=== PATIENT | female | born 2005 | race Caucasian/White ===

== ENCOUNTER 2023-08-23 17:39 | Emergency (ER) | payer OTHER, SELFPAY ==
[2023-08-23 17:53] VITALS: BP 118/83; PULSE 81; RESP 16; TEMP 37.6; O2SAT 100
--- NOTE | 2023-08-23 18:04 | ED.GENADULT ---
HPI - General Adult General Chief complaint: Unspecified Stated complaint: Right Side Face Pain Time Seen by Provider: 08/23/23 17:58 Mode of arrival: ambulatory Limitations: no limitations History of Present Illness HPI narrative: 18-year-old female presents with concern for right jaw pain. She reports it hurts when she opens and closes her mouth for more than a week. She reports she has history of jaw popping and clicking. She reports she has taken Tylenol. She denies any facial or ear swelling, redness, warmth. Denies drainage from the ear MD complaint: Jaw pain Related Data Home Medications Medication Instructions Recorded Confirmed budesonide-formoterol HFA 80 inhalation 08/23/23 mcg-4.5 mcg/actuation aerosol inhaler (Symbicort) norethindrone acetate 1.5 tablet 08/23/23 mg-ethinyl estradiol 30 mcg tablet Allergies Allergy/AdvReac Type Severity Reaction Status Date / Time No Known Drug Allergies Allergy Mild Other Verified 08/23/23 17:49 Review of Systems Review of Systems: CONSTITUTIONAL: Denies malaise, chills, sweats, or fever. EYES: Denies visual changes ENT: Denies rhinorrhea, congestion, sinus pain, otalgia or sore throat. Reports right jaw pain CARDIOVASCULAR: Denies chest pain, palpitations RESPIRATORY: Denies cough or dyspnea. SKIN: Denies rash or itching. MUSCULOSKELETAL: Denies myalgia. NEUROLOGIC: Denies numbness, weakness, or headache. All systems reviewed & are unremarkable except as noted in HPI and below PMFSH Comments At time of signature, agree with nursing past medical, surgical, social and family history. There is no relevant family history pertinent to the presenting complaint Exam Narrative: GENERAL: Well-appearing, well-nourished, and in no acute distress. HEAD: Normocephalic, atraumatic. EYES: PERRLA, sclera clear ENT: Nares clear, turbinates pink, no rhinorrhea or epistaxis. Mucous membranes moist. TM pearly jay with sharp light reflex bilaterally; no tragal tenderness. Oropharynx without erythema or lesions. Tonsils not enlarged and without exudate. No missing teeth, broken teeth, caries, dental pain. Slight tenderness noted to the right TMJ, popping of the right TMJ noted with opening and closing of the mouth NECK: Supple. No lymphadenopathy. CHEST: No respiratory distress. Speaks in full sentences. HEART: Regular rate and rhythm. SKIN: Warm, dry, no visible rash. NEURO: Alert and oriented x3. PSYCH: Normal mood and affect Course Course Emergency Course: Patient is aware of diagnosis, understands and agrees to treatment plan. Anticipatory guidance given. Patient agrees to follow-up as directed and is aware of reasons to seek care at the emergency department. Portions of this record may have been created with voice recognition software Level of Care: Express Care Visit Vital Signs Vital signs: Vital Signs Temperature 99.6 F 08/23/23 17:53 Pulse Rate 81 08/23/23 17:53 Respiratory Rate 16 08/23/23 17:53 Blood Pressure 118/83 08/23/23 17:53 Pulse Oximetry 100 08/23/23 17:53 Oxygen Delivery Room Air 08/23/23 17:53 Temperature 99.6 F 08/23/23 17:53 Pulse Rate 81 08/23/23 17:53 Respiratory Rate 16 08/23/23 17:53 Blood Pressure 118/83 08/23/23 17:53 Pulse Oximetry 100 08/23/23 17:53 Oxygen Delivery Room Air 08/23/23 17:53 Reviewed. Medical Decision Making MDM Narrative Medical decision making narrative: Exam findings show no acute concerns or changes; patient is non-toxic appearing and is in no distress. Patient is appropriate for outpatient treatment and follow-up. Differential Diagnosis Differential Diagnosis: Ear pain, otitis media, mastoiditis, dental pain, dental infection, TMJ Vital Signs Vital Signs: Vital Signs Temperature 99.6 F 08/23/23 17:53 Pulse Rate 81 08/23/23 17:53 Respiratory Rate 16 08/23/23 17:53 Blood Pressure 118/83 08/23/23 17:53 Pulse Oximetry 100
== END 2023-08-23 18:08 | disposition home or self-care (01) ==
PROVIDERS: Emergency Provider Nurse Practitioner; PCP Pediatrics
DX: M26.629 Arthralgia of temporomandibular joint, unspecified side (principal); Z79.899 Other long term (current) drug therapy
CPT/HCPCS: 99211; G0463

== ENCOUNTER 2024-08-15 13:53 | Emergency (ER) | payer OTHER, SELFPAY ==
--- NOTE | ~2024-08-15 | XR_ITS ---
XR chest 2V Ordering provider: Yvonne Landa APRN History: 19 years Female with . cough . Comparison: None. FINDINGS: MEDIASTINUM: The cardiac silhouette is not enlarged. LUNGS: No infiltrates, effusions or pneumothorax. OTHER: No free air under the diaphragm. IMPRESSION: No acute cardiopulmonary pathology. Reviewed, dictated and finalized at location [facility] [employer]
[2024-08-15 14:03] VITALS: BP 111/70; PULSE 65; RESP 20; TEMP 37.2; O2SAT 100
--- NOTE | 2024-08-15 14:23 | ED.URI ---
HPI - URI/Sore Throat General Chief Complaint: Upper Respiratory Infection Stated Complaint: fever, congested in chest Time Seen by Provider: 08/15/24 14:23 Source: patient, RN notes reviewed and old records reviewed Mode of arrival: ambulatory Limitations: no limitations History of Present Illness HPI Narrative: Patient presents accompanied by her father. She is complaining of fever and a congested cough for the past 2 weeks. She reports T-max of 99.5?. She has been taking ibuprofen with good relief. She denies any wheezing or shortness of breath. She voices no other concerns or complaints at this time Related Data Home Medications Medication Instructions Recorded Confirmed budesonide-formoterol HFA 80 See Rx Instructions .Route .COMPLEX 08/23/23 08/15/24 mcg-4.5 mcg/actuation aerosol inhaler (Symbicort) norethindrone acetate 1.5 1 tablet PO DAILY 08/23/23 08/15/24 mg-ethinyl estradiol 30 mcg tablet Allergies Allergy/AdvReac Type Severity Reaction Status Date / Time No Known Drug Allergies Allergy Mild Other Verified 08/15/24 14:01 Review of Systems Review of Systems: All systems reviewed & are unremarkable except as noted in HPI and below Constitutional: Constitutional: Reports as per HPI, Reports no additional constitutional complaints and Reports fever(s) ENT: Reports system reviewed and no additional complaints, except as documented Cardiovascular: Cardiovascular: Reports as per HPI and Reports no additional cardiovascular complaints Respiratory: Respiratory: Reports no additional respiratory complaints, Reports chest congestion and Reports cough Gastrointestinal: Gastrointestinal: Reports no additional gastrointestinal complaints PMFSH Comments At the time of my signature, I reviewed and agree with the nursing past medical, surgical, social, and family history. There is no relevant family history pertinent to the patient complaint. Exam Const: General: cooperative, no acute distress, alert and awake Orientation/consciousness: oriented to person, oriented to place and oriented to time HENMT: Head: normal to inspection Mouth: Yes moist mucous membranes Resp: Effort & Inspection: normal respiratory effort and able to speak in complete sentences Auscultation: clear to auscultation bilaterally, no crackles, no rales, no rhonchi and no wheezes Cardio: Palpation: normal PMI Rate: regular rate Rhythm: regular rhythm Heart sounds: S1 normal heart sound present and S2 normal heart sound present Neuro: General: oriented to person, oriented to place and oriented to time Cranial nerves: Yes CN's II-XII intact bilaterally Psych: Appearance: grossly normal Thought process: Normal thought process present Insight: Good insight present (Psych) Judgement: Good judgement present (Psych) Course Course Level of Care: Express Care Visit Vital Signs Vital signs: Vital Signs Temperature 98.9 F 08/15/24 14:03 Pulse Rate 65 08/15/24 14:03 Respiratory Rate 20 08/15/24 14:03 Blood Pressure 111/70 08/15/24 14:03 Pulse Oximetry 100 08/15/24 14:03 Oxygen Delivery Room Air 08/15/24 14:03 Temperature 98.9 F 08/15/24 14:03 Pulse Rate 65 08/15/24 14:03 Respiratory Rate 20 08/15/24 14:03 Blood Pressure 111/70 08/15/24 14:03 Pulse Oximetry 100 08/15/24 14:03 Oxygen Delivery Room Air 08/15/24 14:03 Reviewed MDM - URI/Sore Throat MDM Narrative Medical decision making narrative: Reassuring physical exam, negative chest x-ray. Treat as bronchitis with steroid burst and bronchodilators. Follow up primary care provider. Emergency department for new or worse symptoms. Discharge instructions reviewed with patient, as well as provided in writing per nursing staff. The instructions also include specific and strict return/GO TO THE ER as well as f/u information. All questions have been answered, and the patient deny any further questions with discharge and discharge plan. Some parts of this dictation were generated by voice recognition software and may contain typographical and/or grammatical inaccuracies. Differential Diagnosis Differential diagnosis: Likely upper respiratory infection, otitis media, sinusitis and bronchitis Medical Records Attestation: I reviewed the patient's medical records. Imaging Data Attestation: I personally reviewed and interpreted this imaging study as follows: My impression: No acute findings Radiologist's impression: Patient: Jacquelin Nicholson : 2005 MR#: [id number] Age: 19 Acct:[id number] Loc: [facility] ADM Date: 08/15/24Attending Dr: Ordering Physician: Yvonne Landa FNP Date of Service: 08/15/24 Procedure(s): XR chest 2V Accession Number(s): [id number] cc: Yvonne Landa FNP; GiovanyFranchesca MD~ XR chest 2V Ordering provider: Yvonne Landa APRN History: 19 years Female with . cough . Comparison: None. FINDINGS: MEDIASTINUM: The cardiac silhouette is not enlarged. LUNGS: No infiltrates, effusions or pneumothorax. OTHER: No free air under the diaphragm. IMPRESSION: No acute cardiopulmonary pathology. Reviewed, dictated and finalized at location [facility] [employer] Dictated By: Rafi De La O MD 08/15/24 1440 Signed By: <Electronically signed by Rafi De La O MD in [place]> 08/15/24 1441 Discharge Plan Discharge Clinical Impression: Bronchitis Patient Disposition: Home, Self-Care Condition: Stable Instructions: Antibiotic Form, Acute Bronchitis (ED) Additional Instructions: Take medications as prescribed. Follow with primary care provider. Emergency department for new or worsened Patient Language: Ukrainian Prescriptions: New prednisone 50 mg tablet 50 mg PO DAILY Qty: 5 0RF albuterol sulfate [Ventolin HFA] 90 mcg/actuation HFA aerosol inhaler 2 puff inhalation QID PRN (Reason: shortness of breath or wheezing) Qty: 8.5 0RF No Action budesonide-formoterol [Symbicort] 80-4.5 mcg/actuation HFA aerosol inhaler See Rx Instructions .ROUTE .COMPLEX Rx Instructions: rx norethindrone ac-eth estradiol 1.5-30 mg-mcg tablet 1 tablet PO DAILY Follow-up/Referrals: Franchesca Powell MD [Primary Care Provider] - 2 Weeks Stand Alone Forms: Work/School Release IP Time of Disposition: 15:04
== END 2024-08-15 15:09 | disposition home or self-care (01) ==
PROVIDERS: Emergency Provider Nurse Practitioner Family; PCP Pediatrics
DX: J40 Bronchitis, not specified as acute or chronic (principal)
CPT/HCPCS: 71046; 99213; G0463

== ENCOUNTER 2024-09-05 13:00 | Emergency (ER) | payer OTHER, SELFPAY ==
--- NOTE | 2024-09-05 13:05 | ED.URI ---
HPI - URI/Sore Throat General Chief Complaint: Upper Respiratory Infection Stated Complaint: Fever/Sore Throat Time Seen by Provider: 09/05/24 13:05 Source: patient Mode of arrival: ambulatory Limitations: no limitations History of Present Illness HPI Narrative: Patient is a 19-year-old female who presents with 3 weeks of sore throat, mild congestion and intermittent fever 100?, worsening the past week. Was treated for bronchitis on 08/15. Denies any, nausea no vomiting or diarrhea. Has been taking [id number] medication. Related Data Home Medications Medication Instructions Recorded Confirmed budesonide-formoterol HFA 80 See Rx Instructions .Route .COMPLEX 08/23/23 09/05/24 mcg-4.5 mcg/actuation aerosol inhaler (Symbicort) norethindrone acetate 1.5 1 tablet PO DAILY 08/23/23 09/05/24 mg-ethinyl estradiol 30 mcg tablet Allergies Allergy/AdvReac Type Severity Reaction Status Date / Time No Known Drug Allergies Allergy Mild Other Verified 09/05/24 13:09 Review of Systems Review of Systems: All systems reviewed & are unremarkable except as noted in HPI and below Constitutional: Constitutional: Denies body ache(s), Denies chills, Denies fatigue, Reports fever(s), Denies headache(s), Denies malaise and Denies weakness Eyes: Eyes: Denies blurry vision, Denies itchy eyes and Denies loss of vision ENT: Denies otalgia, Denies headache(s), Reports nasal congestion, Denies sinus pain and Reports sore throat Cardiovascular: Cardiovascular: Denies chest pain, Denies irregular heart rhythm and Denies dyspnea Respiratory: Respiratory: Denies cough and Denies dyspnea Gastrointestinal: Gastrointestinal: Denies abdominal pain, Denies diarrhea, Denies nausea and Denies vomiting Musculoskeletal: Musculoskeletal: Denies back pain, Denies myalgias and Denies arthralgias Integumentary/Breasts: Skin/Breast: Denies pruritus and Denies rash Neurologic: Denies headache(s), Denies loss of vision and Denies weakness Psychiatric: Psychiatric: Reports no additional psychiatric complaints Endocrine: Endocrine: Denies fatigue Allergic/Immunologic: Allergic/Immunologic: Denies itchy eyes PMFSH Comments At time of signature, agree with nursing past medical, surgical, social and family history. There is no relevant family history pertinent to the presenting complaint. Exam Const: General: cooperative, healthy appearing, comfortable, no acute distress and well nourished Nutritional Appearance: well nourished Orientation/consciousness: patient oriented x3 Limitations: no limitations HENMT: Head: normal to inspection, normocephalic and atraumatic Ears: hearing grossly normal bilaterally, external ears normal, EAC's normal, no periauricular adenopathy and TM abnormal obstructed by cerumen bilateral Face/Nose/Sinus: Normal external nose present, Abnormal mucous membranes and turbinates present erythematous bilateral and diffuse, normal facial exam, sinuses nontender and face symmetric Face and sinus: normal facial exam, sinuses nontender and face symmetric Mouth: Yes Normal oral and palatal mucosa present, Yes lip normal, Yes tongue normal, Yes Normal salivary glands and ducts present, Yes oropharynx normal and Yes moist mucous membranes Teeth and gingiva: dentition normal Throat: tonsils normal, uvula midline, posterior oropharynx abnormal erythema and postnasal drainage Eyes: General: appearance normal, both eyes and all related structures Alignment and Position: alignment normal and position normal Periorbital: periorbital findings normal Eyelids: eyelids normal Pupils: Equal, round and reactive pupils present Neck: Neck: normal visual inspection, full ROM, no lymphadenopathy and supple Chest: Chest palpation & inspection: normal inspection of the chest and normal palpation of entire chest wall Resp: Effort & Inspection: normal respiratory effort and able to speak in complete sentences Auscultation: clear to auscultation bilaterally, no crackles, no rales, no rhonchi and no wheezes Cardio: Rate: regular rate Rhythm: regular rhythm Heart sounds: S1 normal heart sound present and S2 normal heart sound present GI: Inspection: normal to inspection Skin: General skin exam: normal color and no rashes or lesions noted Neuro: General: patient oriented x3 and moves all extremities Cranial nerves: Yes Equal, round and reactive pupils present Speech: normal speech Gait exam (Neuro): Normal gait present Extrem: General: normal to inspection, full ROM and no edema Psych: Appearance: grossly normal and well kempt Mental Status: mental status grossly normal Speech and movement: Normal speech and movement present Affect: normal affect Attitude: cooperative Thought process: Normal thought process present Course Course Emergency Course: Patient is aware of diagnosis, understands and agrees to treatment plan. Anticipatory guidance given. Patient agrees to follow-up as directed and is aware of reasons to seek care at the emergency department. Portions of this record may have been created with voice recognition software Level of Care: Express Care Visit Vital Signs Vital signs: Vital Signs Temperature 36.9 C 09/05/24 13:10 Pulse Rate 102 H 09/05/24 13:10 Respiratory Rate 16 09/05/24 13:10 Blood Pressure 103/65 09/05/24 13:10 Pulse Oximetry 98 09/05/24 13:10 Oxygen Delivery Room Air 09/05/24 13:10 Temperature 36.9 C 09/05/24 13:11 Pulse Rate 102 H 09/05/24 13:11 Respiratory Rate 16 09/05/24 13:11 Blood Pressure 103/65 09/05/24 13:11 Pulse Oximetry 98 09/05/24 13:11 Oxygen Delivery Room Air 09/05/24 13:11 Reviewed MDM - URI/Sore Throat MDM Narrative Medical decision making narrative: Discharge instructions reviewed with patient, as well as provided in writing per nursing staff. The instructions also include specific and strict return/GO TO THE ER as well as f/u information. All questions have been answered, and the patient deny any further questions with discharge and discharge plan. Differential diagnosis considered: Cline virus, strep pharyngitis, allergic rhinitis, upper respiratory tract infection, sinusitis, rhinosinusitis, nasopharyngitis. viral pharyngitis, otitis media, otitis externa, otitis effusion, foreign body, cerumen impaction, viral syndrome, and influenza.? Exam findings show no acute concerns or changes; patient is non-toxic appearing and is in no distress.? Patient is appropriate for outpatient treatment and follow-up.? Medical Records Attestation: I reviewed the patient's medical records. Lab Data Attestation: I reviewed the patient's lab results. Labs: Lab Results 09/05/24 Range/Units 13:17 POC Grp A Strep Screen Negative (Negative) Discharge Plan Discharge Clinical Impression: Bacterial pharyngitis Patient Disposition: Home, Self-Care Condition: Stable Instructions: Pharyngitis (ED) Additional Instructions: Take antibiotic as prescribed. Other symptomatic treatments include: -Alternate Tylenol and Motrin per package directions for fever or pain. -Antihistamine medication such as Benadryl at night and Zyrtec/Claritin/Madonna during the day can help improve symptoms. -Use Flonase twice a day for 5 days then daily to help reduce the inflammation and dry up your sinuses. -You can also use Sudafed or Mucinex. Be sure to drink plenty of water with these medications at least 8 ounces with every dose and it is important to drink 8 to 10 glasses of water per day. Water is a natural decongestant -Eat and drink things that are easy to swallow, like tea or soup, or popsicles. -Oral rinses such as: Salt water gargles and/or may use topical anesthetic (eg. Chloraseptic spray) or lozenges to relieve dryness or throat pain). -Frequent hand washing or hand financial planning assistant is one of the best ways to prevent spread of infection. -Using a vaporizer or humidifier at night will also help thin secretions and help with coughing up phlegm. -Follow up with primary care provider in 3-5 days if condition is not improving - For new or worsening symptoms go directly to the nearest ER Prescriptions: New amoxicillin 875 mg tablet 875 mg PO Q12H 7 Days Qty: 14 0RF fluticasone propionate [Flonase Allergy Relief] 50 mcg/actuation spray,suspension 1 spray intranasal DAILY Qty: 16 0RF Rx Instructions: administer into each nostril loratadine 10 mg tablet 10 mg PO DAILY Qty: 30 0RF No Action budesonide-formoterol [Symbicort] 80-4.5 mcg/actuation HFA aerosol inhaler See Rx Instructions .ROUTE .COMPLEX Rx Instructions: rx norethindrone ac-eth estradiol 1.5-30 mg-mcg tablet 1 tablet PO DAILY albuterol sulfate [Ventolin HFA] 90 mcg/actuation HFA aerosol inhaler 2 puff inhalation QID PRN (Reason: shortness of breath or wheezing) Qty: 8.5 0RF Follow-up/Referrals: Giovany,MD Franchesca [Primary Care Provider] - 3 Days Time of Disposition: 13:55
[2024-09-05 13:10] VITALS: BP 103/65; PULSE 102; RESP 16; TEMP 36.9; O2SAT 98
[2024-09-05 13:11] VITALS: BP 103/65; PULSE 102; RESP 16; TEMP 36.9; O2SAT 98
[2024-09-05 13:32] LABS: EDSTREPNEGPOS1 Negative (Negative)
== END 2024-09-05 14:00 | disposition home or self-care (01) ==
PROVIDERS: Emergency Provider Nurse Practitioner Family; PCP Pediatrics
DX: J02.9 Acute pharyngitis, unspecified (principal)
CPT/HCPCS: 87081; 87880; 99213; G0463